=== PATIENT | female | born 1945 | race Caucasian/White ===

== ENCOUNTER 2018-04-01 23:38 | Emergency (ER) | payer OTHER ==
[~2018-04-01] VITALS: Ht 167.6 cm; Wt 77.1 kg
[2018-04-01] MEDS ORDERED: PRINIVIL5 M1 PO (23:50)
[2018-04-01] MEDS ORDERED: BENADRYL ALLERG25 M5 PO (23:51)
[2018-04-02 00:02] LABS: BASO % 0.6 % (0.0-1.0); EOS # 0.2 10*3/uL (0.0-0.4); EOS % 2.5 % (1.0-4.0); HEMATOCRIT 36.3 % (37.0-47.0); LYMPH # 1.7 10*3/uL (1.3-4.4); LYMPH % 26.4 % (27.0-41.0); MEAN CELL VOLUME 87.1 fl (81.0-99.0); MEAN CORPUSCULAR HGB 28.8 pg (27.0-31.0); MEAN CORPUSCULAR HGB CONC 33.1 g/dl (33.0-37.0); MEAN PLATELET VOLUME 9.1 fl (9.6-12.3); MONO # 0.6 10*3/uL (0.1-1.0); MONO % 8.9 % (3.0-9.0); NEUT # 3.8 10*3/uL (2.3-7.9); NEUT % 61.3 % (47.0-73.0); PLATELET COUNT AUTOMATED 233 10*3/uL (130-400); RED BLOOD COUNT 4.17 10*6/uL (4.10-5.10); WHITE BLOOD COUNT 6.3 10*3/uL (4.8-10.8)
[2018-04-02 00:12] LABS: ACT PARTIAL THROMBO TIME 23.3 SECONDS (20.8-31.5)
[2018-04-02 00:20] LABS: ALBUMIN 3.7 gm/dl (3.1-4.5); ALKALINE PHOSPHATASE 95 U/L (45-117); BUN 8 mg/dl (7-24); CHLORIDE 96 mmol/L (98-107); CREATININE 0.75 mg/dL (0.55-1.02); POTASSIUM 3.7 mmol/L (3.5-5.1); SGOT/AST 36 IU/L (3-35); SGPT/ALT 28 U/L (12-78); SODIUM 131 mmol/L (136-145); TOTAL PROTEIN 7.8 gm/dL (6.4-8.2)
[2018-04-02 00:24] LABS: TROPONIN I < 0.015 ng/ml (<0.045)
== END 2018-04-02 01:02 | disposition home or self-care (01) ==
LOC: ED 23:38
PROVIDERS: Student in an Organized Health Care Education/Training Program
DX: I83.893 Varicose veins of bilateral lower extremities with other complications (principal); Z79.899 Other long term (current) drug therapy

== ENCOUNTER 2025-02-21 13:24 | Emergency (ER) | payer OTHER ==
[~2025-02-21] VITALS: Ht 170.1 cm; Wt 81.6 kg
[~2025-02-21 13:24] MED LIST: BENADRYL ALLERG25 M5 PO; PRINIVIL5 M1 PO
[2025-02-21] MEDS ORDERED: GABAPENTIN 100 MG CAP PO ONE (14:15)
[2025-02-21] MEDS ORDERED: GABARONE100 M1 PO (14:33)
[2025-02-21] MEDS ORDERED: VALTREX1000 MG PO (14:33)
== END 2025-02-21 14:51 | disposition home or self-care (01) ==
LOC: ED 13:24
DX: B02.30 Zoster ocular disease, unspecified (principal); I10 Essential (primary) hypertension; Z79.899 Other long term (current) drug therapy